=== PATIENT | male | born 1975 | race Caucasian/White ===

== ENCOUNTER 2017-11-01 10:00 | Inpatient (IN) | payer OTHER ==
[~2017-11-01] VITALS: Ht 162.6 cm; Wt 79.4 kg
[2017-11-09] MEDS ORDERED: DOCUSATE SODIU100 MG PO (11:19)
[2017-11-09] MEDS ORDERED: GABAPENTIN800 MG PO (11:19)
[2017-11-09] MEDS ORDERED: PERCOCET 5-3251 EACH PO (11:20)
[2017-11-09] MEDS ORDERED: AMOX-CLAV 875-1 EACH PO (11:20)
[2017-11-09] MEDS ORDERED: CLONAZEPAM1 MG PO (11:20)
== END 2017-11-09 14:14 | disposition home or self-care (01) | DRG 520 ==
LOC: O/R 11-08 05:16 → SURH 11-08 09:15 → PED 11-08 16:14
PROVIDERS: Orthopaedic Surgery Orthopaedic Surgery of the Spine
PROC: 0ST20ZZ Resection of Lumbar Vertebral Disc, Open Approach (ICD-10-PCS; 2017-11-08)
PROC: 00NY0ZZ Release Lumbar Spinal Cord, Open Approach (ICD-10-PCS; principal; 2017-11-08 05:00)
DX: M47.26 Other spondylosis with radiculopathy, lumbar region (principal); M51.16 Intervertebral disc disorders with radiculopathy, lumbar region

== ENCOUNTER 2018-01-09 14:09 | Outpatient (CLI) | payer OTHER ==
[~2018-01-09 14:09] MED LIST: AMOX-CLAV 875-1 EACH PO; CLONAZEPAM1 MG PO; DOCUSATE SODIU100 MG PO; GABAPENTIN800 MG PO; PERCOCET 5-3251 EACH PO
== END 2018-01-09 17:02 | disposition home or self-care (01) ==
LOC: RAD 14:09
DX: M51.36 Other intervertebral disc degeneration, lumbar region (principal); Z98.1 Arthrodesis status